=== PATIENT | female | born 1975 | race Caucasian/White ===

== ENCOUNTER 2019-10-31 16:51 | Emergency (ER) | payer MEDICAID ==
[~2019-10-31] VITALS: Ht 170.2 cm; Wt 80.4 kg
[2019-10-31 16:55] VITALS: BP 139/91
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
[2019-10-31 17:55] LABS: HCG UR SG 1.008 (1.003-1.030); MICROSCOPIC AUTO
[2019-10-31 17:59] LABS: CULTURE INDICATED? YES
--- NOTE | 2019-10-31 18:10 | NUR ---
REPORT RECEIVED FROM OMAYRA RIVERA.
--- NOTE | 2019-10-31 18:15 | NUR ---
BS REPORT TO [facility], TRANSFER OF CARE AT THIS TIME.
--- NOTE | 2019-10-31 19:10 | NUR ---
PT RESTING ON [employer] W/ CALL LIGHT IN REACH. CONNECTED TO MONITORING. VS STABLE. AWAITING US.
--- NOTE | 2019-10-31 19:42 | NUR ---
ATTEMPT TO CALL US REGARDING DELAY W/ NO ANSWER.
--- NOTE | 2019-10-31 21:02 | NUR ---
PT TO US.
--- NOTE | 2019-10-31 21:42 | NUR ---
IN ROOM FOR RECHECK.
--- NOTE | 2019-10-31 22:06 | NUR ---
Patient given discharge instructions and they have confirmed that they understand the instructions. Patient ambulatory with steady gait.
== END 2019-10-31 22:18 | disposition home or self-care (01) ==
LOC: ED 19:12
DX: N39.0 Urinary tract infection, site not specified (principal); R31.9 Hematuria, unspecified; R10.2 Pelvic and perineal pain
CPT/HCPCS: 76830; 81001; 81025; 87077; 87086; 87186; 99284